=== PATIENT | female | born 1990 | race Caucasian/White ===

== ENCOUNTER → 2020-09-08 15:13 | Outpatient (BNVA) | payer MEDICAID, SELFPAY | PROVIDERS: Visit Provider Obstetrics & Gynecology | DX: Z34.01 Encounter for supervision of normal first pregnancy, first trimester (principal) | CPT/HCPCS: 80307; 84315; 85027; 86592; 86762; 86803; 86850; 86900; 87086; 87340; 87806 ==

== ENCOUNTER → 2020-09-22 09:56 | Outpatient (BNVA) | payer MEDICAID, SELFPAY | PROVIDERS: Visit Provider Obstetrics & Gynecology | DX: Z34.01 Encounter for supervision of normal first pregnancy, first trimester (principal) | CPT/HCPCS: 82950; 84315; 87491; 87591 ==

== ENCOUNTER → 2020-11-18 14:32 | Outpatient (BNVA) | payer MEDICAID, SELFPAY | PROVIDERS: Visit Provider Obstetrics & Gynecology | DX: Z36.87 Encounter for antenatal screening for uncertain dates (principal) | CPT/HCPCS: 76805 ==

== ENCOUNTER → 2020-12-16 13:15 | Outpatient (BNVA) | payer MEDICAID, SELFPAY | PROVIDERS: Visit Provider Obstetrics & Gynecology | DX: Z34.01 Encounter for supervision of normal first pregnancy, first trimester (principal) | CPT/HCPCS: 82950; 84315 ==

== ENCOUNTER → 2020-12-26 15:51 | Outpatient (BNVA) | payer MEDICAID, SELFPAY | PROVIDERS: Visit Provider Obstetrics & Gynecology | DX: Z34.01 Encounter for supervision of normal first pregnancy, first trimester (principal); Z20.2 Contact with and (suspected) exposure to infections with a predominantly sexual mode of transmission; Z76.89 Persons encountering health services in other specified circumstances | CPT/HCPCS: 84315; 87491; 87591; 87661 ==

== ENCOUNTER → 2021-01-13 13:12 | Outpatient (BNVA) | payer MEDICAID, SELFPAY | PROVIDERS: Visit Provider Obstetrics & Gynecology | DX: Z34.01 Encounter for supervision of normal first pregnancy, first trimester (principal) | CPT/HCPCS: 84315; 85025 ==

== ENCOUNTER → 2021-01-27 10:01 | Outpatient (BNVA) | payer MEDICAID, SELFPAY | PROVIDERS: Visit Provider Nurse Practitioner Women's Health | DX: Z34.90 Encounter for supervision of normal pregnancy, unspecified, unspecified trimester (principal) | CPT/HCPCS: 80307; 84315 ==

== ENCOUNTER → 2021-03-10 09:44 | Outpatient (BNVA) | payer MEDICAID, SELFPAY | PROVIDERS: Visit Provider Obstetrics & Gynecology | DX: Z34.01 Encounter for supervision of normal first pregnancy, first trimester (principal) | CPT/HCPCS: 81000; 87081 ==

== ENCOUNTER 2021-03-18 11:18 | Outpatient (CLI) | payer MEDICAID, SELFPAY ==
[2021-03-18] VITALS (8 sets, daily range): BP systolic 120–151; BP diastolic 66–86; PULSE 86–116; RESP 18; TEMP 36.4; BMI 44.6
[2021-03-18] MEDS: acetaminophen 500 mg Tablet 1000 MG PO (13:02)
== END 2021-03-18 13:33 | disposition home or self-care (01) ==
LOC: OPOB 11:22 → OBGYN 11:24
PROVIDERS: Visit Provider Obstetrics & Gynecology
DX: O99.891 Other specified diseases and conditions complicating pregnancy (principal); M54.9 Dorsalgia, unspecified; M25.559 Pain in unspecified hip
CPT/HCPCS: 59025; 99211

== ENCOUNTER → 2021-03-31 08:50 | Outpatient (BNVA) | payer MEDICAID, SELFPAY | PROVIDERS: Visit Provider Obstetrics & Gynecology | DX: Z34.01 Encounter for supervision of normal first pregnancy, first trimester (principal); Z20.822 Contact with and (suspected) exposure to COVID-19 | CPT/HCPCS: 81000; 87635 ==

== ENCOUNTER 2021-04-07 18:30 | Inpatient (IN) | payer MEDICAID, SELFPAY ==
[2021-04-07] VITALS (14 sets, daily range): BP systolic 128–174; BP diastolic 60–110; PULSE 55–85; RESP 18; TEMP 36.2; BMI 44.0
[2021-04-07 20:12] LABS: Add Urine Microscopic? NO; Charge for UA Resulting for Rev
[2021-04-07] MEDS: miSOPROStol 100 mcg tablet 25 MCG VAGINAL (20:14)
[2021-04-07 20:17] LABS: Basophils # 0.1 10^3/uL (0.0-0.1); Basophils % 0.3 %; Eosinophils # 0.2 10^3/uL (0.0-0.8); Hematocrit 38.1 % (37.0-47.0); Hemoglobin 11.9 g/dL (11.5-15.3); Lymphocytes # 3.7 10^3/uL (0.8-4.8); Lymphocytes % 22.1 %; Mean Corpuscular HGB Conc 31.2 g/dL (30.0-36.0); Mean Corpuscular Hemoglobin 23.9 pg (28.0-34.0); Mean Corpuscular Volume 76.5 fl (81-99); Monocytes % 6.2 %; Neutrophils # 11.72 10^3/uL (1.8-7.7); Neutrophils % 69.9 %; Nucleated Red Blood Cells % 0 %; Platelet Count 353 10^3/cmm (130-400); Red Blood Count 4.98 10^6/uL (4.1-5.3); Red Cell Distribution Width 15.9 % (12.1-15.1); White Blood Count 16.8 10^3/uL (4.0-10.0)
[2021-04-07 20:24] LABS: Bilirubin Urine Neg (Negative); Blood Urine Neg (Negative); Glucose Urine UA Norm (Normal); Ketones Urine Negative (Negative); Leukocyte Esterase Urine Negative (Negative); Nitrate Urine Negative (Negative); Protein Urine Neg (Negative); Specific Gravity, Urine 1.015 (1.005-1.030); Urine Appearance Clear (CLEAR); Urine Color Yellow (Yellow); Urobilinogen Urine Neg (Negative); pH Urine 5 (5-7)
[2021-04-07 20:34] LABS: Alanine Aminotransferase < 5 U/L (0-33); Albumin Level 3.1 g/dL (3.5-5.2); Alkaline Phosphatase 173 IU/L (35-105); Aspartate Amino Transferase 13 U/L (0-32); Blood Urea Nitrogen 13 mg/dL (6-20); Calcium 8.4 mg/dL (8.5-10.5); Carbon Dioxide 17 mmol/L (22-29); Chloride 106 mmol/L (98-107); Globulin 2.7 g/dL (1.3-4.6); Glomerular Filtration Rate 74.6 mL/min (90-130); Glucose 118 mg/dL (65-115); Osmolality Calculated 281 mOsm/kg (285-295); Sodium 135 mmol/L (136-145); Total Bilirubin 0.2 mg/dL (0.15-1.2); Total Protein 5.8 g/dL (6.6-8.7); Uric Acid 4.7 mg/dL (2.4-5.7)
[2021-04-07 20:43] LABS: Urine Creatinine 109 mg/dL (28-217); Urine Protein Random 11 mg/dL
[2021-04-07] MEDS: dextrose 5%-lactated ringers 1,000 ML 125 ML IV (21:04)
[2021-04-08] VITALS (83 sets, daily range): BP systolic 109–175; BP diastolic 58–105; PULSE 44–85; RESP 17; TEMP 36.3–37.4
[2021-04-08] MEDS: miSOPROStol 100 mcg tablet 25 MCG VAGINAL ×3 (00:18→13:50)
--- NOTE | 2021-04-08 08:45 | PM.OPHPUD ---
Labor & Delivery H&P Update Date of Procedure: April 07, 2021 Date H&P Performed: 04/07/21 H&P update information: I have reviewed H&P completed within last 30 days, I have examined patient prior to procedure and No changes to prior documentation Changes to previous documentation: The patient presents for induction at term. She has had some labile blood pressures, but otherwise no changes. Admission Diagnosis: at 40 weeks 1 day
--- NOTE | 2021-04-08 08:47 | PM.PN ---
Vitals/I&O/Wt Last Vital Signs Temp 97.3 F L 04/08/21 02:12 Pulse 62 04/08/21 08:19 Resp 18 04/07/21 19:41 BP 128/74 04/08/21 08:19 04/07/21 04/08/21 04/08/21 22:59 06:59 14:59 Intake Total 106.25 / 106.25 Balance 106.25 / 106.25 Weight last 48 hrs Weight 273 lb Physical Exam Narrative: EXAM NARRATIVE: The patient is doing well this morning. She has received two doses of cytotec. She had breakfast and now has had a third dose of cytotec. status is overall reassuring. blood pressures have been mostly normal, but she will have an occasional high in the mild range. Const: COMMON NORMALS: no acute distress, patient oriented x3, no limitations, alert and well nourished GENERAL APPEARANCE: cooperative, well kempt and well developed ORIENTATION/CONSCIOUSNESS: Yes awake, Yes oriented to person, Yes oriented to place and Yes oriented to time Neuro: COMMON NORMALS: patient oriented x3 SENSORIUM/ORIENTATION: Yes alert, Yes oriented to person, Yes oriented to place and Yes oriented to time Psych: COMMON NORMALS: mental status grossly normal, Normal thought process present, cooperative, normal affect and speech normal APPEARANCE: Yes grossly normal and Yes well kempt ATTITUDE: Yes calm and Yes engaged ACTIVITY/MOTOR BEHAVIOR: Yes appropriate eye contact SPEECH: Yes normal speech THOUGHT PROCESS: Normal thought process present Data : 04/07/21 20:05 04/07/21 20:05 Attestations Medical Necessity Statement*: The patient will be here for at least 2 midnights Coding Level of Care Code Acute Clerical Supervisor for Rigoberto Dixon
[2021-04-08] MEDS: fentaNYL 50 mcg/mL INJ 2mL IVP ×2 (10:39→14:47)
[2021-04-08] MEDS: lactated ringers 1,000 ML 999 ML IV (16:03)
--- NOTE | 2021-04-08 16:45 | P.ANESASSM_ITS ---
Pre-Anesthetic Assessment Pre-Anesthetic Assessment: Height/Weight: Height 1.68 m Weight 123.831 kg Temp Pulse Resp BP 97.5 F L 60 17 128/60 04/08/21 11:13 04/08/21 17:28 04/08/21 14:47 04/08/21 17:28 Preop Diagnosis: IUP Proposed Procedure: epdiraul Familial anesthetic complications: Hard to wake up after appendectomy as a 12 year old Social: Social History: Tobacco and No alcohol Airway: MP: 3 Dentition: Chipped GI: GI: GERD Metabolic: Metabolic: Morbid obesity Anesthetic Plan: ASA status: 3 Anesthesia: Regional (specify below) Risk of > 500 ml blood loss (7ml/kg in children): Yes, adequate IV access and fluids planned Meds/Allergies Current Medications: Current Medications Generic Name Dose Route Start Last Admin Trade Name Freq PRN Reason Stop Dose Admin Fentanyl 25 - 100 mcg 04/08/21 10:28 04/08/21 14:47 Fentanyl 50 Mcg/ Ml Inj 2ml IVP 25 mcg Q1H PRN Administration SEVERE PAIN Dextrose/Lactated Ringer's 1,000 mls @ 125 m ls/hr 04/07/21 19:45 04/08/21 14:50 Dextrose 5%-Lact ated Ringers IV 125 mls/hr .Q8H SCOTT Infusion Lactated Ringer's 1,000 mls @ 999 m ls/hr 04/08/21 16:00 04/08/21 16:03 Lactated Ringers IV 999 mls/hr .Q1H1M PRN Administration See label comment s PFSH Anesthesia PFSH: Medical History No pertinent past medical history neghx: htn,dm,thyroid,dvt/pe PCP: None Surgical History Hx of appendectomy at age 13 Family History Family/Other Breast cancer Paternal Cousin--dx age 28 Grandfather Diabetes Paternal Heart disease Paternal Father Heart disease Diabetes Grandmother Hypertension Maternal Denies family history of Colon cancer Ovarian cancer Hypercholesteremia Uterine cancer Thyroid disease Stroke Female Reproductive History: : 1 Data Anesthesia CBC & Chem 7: 04/07/21 20:05 04/07/21 20:05 Other Labs: Laboratory Results - last 48 hr 04/07/21 04/07/21 04/07/21 20:05 20:05 20:05 WBC 16.8 H RBC 4.98 Hgb 11.9 Hct 38.1 MCV 76.5 L MCH 23.9 L MCHC 31.2 RDW 15.9 H Plt Count 353 MPV 12.0 H Neut % (Auto) 69.9 Lymph % (Auto) 22.1 [place] % (Auto) 6.2 Eos % (Auto) 1.0 Baso % (Auto) 0.3 Neut # (Auto) 11.72 H Lymph # (Auto) 3.7 [place] # (Auto) 1.0 H Eos # (Auto) 0.2 Baso # (Auto) 0.1 Nucleated RBC % (auto) 0 Nucleated RBCs # 0.0 Sodium Potassium Chloride Carbon Dioxide Anion Gap BUN Creatinine GFR Calculation Glucose Calculated Osmolality Uric Acid Calcium Total Bilirubin AST ALT Alkaline Phosphatase Total Protein Albumin Globulin Urine Color Yellow Urine Appearance Clear Urine pH 5 Ur Specific [place] 1.015 Urine Protein Neg Urine Glucose (UA) Norm Urine Ketones Negative Urine Blood Neg Urine Nitrate Negative Urine Bilirubin Neg Urine Urobilinogen Neg Ur Leukocyte Esterase Negative U Random Total Protein 11 Urine Creatinine 109 Protein/Creatinin Ratio 0.10 04/07/21 20:05 WBC RBC Hgb Hct MCV MCH MCHC RDW Plt Count MPV Neut % (Auto) Lymph % (Auto) [place] % (Auto) Eos % (Auto) Baso % (Auto) Neut # (Auto) Lymph # (Auto) [place] # (Auto) Eos # (Auto) Baso # (Auto) Nucleated RBC % (auto) Nucleated RBCs # Sodium 135 L Potassium 4.0 Chloride 106 Carbon Dioxide 17 L Anion Gap 16.0 BUN 13 Creatinine 0.9 GFR Calculation 74.6 L Glucose 118 H Calculated Osmolality 281 L Uric Acid 4.7 Calcium 8.4 L Total Bilirubin 0.2 AST 13 ALT < 5 Alkaline Phosphatase 173 H Total Protein 5.8 L Albumin 3.1 L Globulin 2.7 Urine Color Urine Appearance Urine pH Ur Specific [place] Urine Protein Urine Glucose (UA) Urine Ketones Urine Blood Urine Nitrate Urine Bilirubin Urine Urobilinogen Ur Leukocyte Esterase U Random Total Protein Urine Creatinine Protein/Creatinin Ratio Cardiac Studies: No Data to Display
--- NOTE | 2021-04-08 17:05 | ANES.PROC ---
Anesthesia Procedures Procedure/Date: 04/08/21 Epidural: Time Out Performed: Yes Consents Signed: Procedure Consent Consent: requested by attending/covering physician Lumbar Level: L3-L4 Epidural position: sitting Epidural procedure: sterile prep of area, 1% lidocaine to numb the area, 18 g needle, negative for paresthesia passed, neg for paresthesia, test dose given, 1.5% xylocaine 1:200k epi, 0.2% Ropivacaine bolus ml (5), placed PCEA, no systemic response, sterile dressing applied, L.U.D. no apparent complications and 0.2% Ropiavacaine @ mls/hr (3)
[2021-04-08] MEDS: dextrose 5%-lactated ringers 1,000 ML 125 ML IV (17:31)
[2021-04-08] MEDS: oxytocin 30 UNIT/500 ML BAG IV (17:31)
[2021-04-09] VITALS (40 sets, daily range): BP systolic 101–188; BP diastolic 60–111; PULSE 58–116; RESP 17–18; TEMP 36.4–37.6
[2021-04-09] MEDS: lactated ringers 1,000 ML 999 ML IV (00:50)
[2021-04-09] MEDS: dextrose 5%-lactated ringers 1,000 ML 125 ML IV (02:02)
[2021-04-09] MEDS: lactated ringers 1,000 ML 125 ML IV (05:07)
[2021-04-09] MEDS: lidocaine 2% INJ 20 mL INJECTION (05:39)
--- NOTE | 2021-04-09 05:51 | P.PCNOB_ITS ---
Delivery Note: Date of delivery: April 09, 2021 Pre-delivery diagnoses: Term Post-delivery diagnoses: Term delivered Op report anesthesia: Epidural Estimated blood loss (mL): 300 Findings: At 0 530 baby boy, Apgars 9/9, weight 3270 g, first-degree laceration Pre-Delivery Course: The patient is a 30yo at 40+2 weeks EGA who has been receiving care from [facility]. Mrs. Peck was admitted to labor and delivery at 40 weeks +1-day for elective induction. Cervical ripening via misoprostol x3 followed by oxytocin. LMP:06/30/2020 EDC of 04/06/2021 HPI: Received appropriate care. Daily vitamins since the start of care. labs have all been normal, including negative for HIV. She was found to negative for Group B Strep from screening at 36 weeks. She has gained approximately 20 lbs throughout the . She denies a history of HTN during . Glucose tolerance screening for gestational diabetes was negative. Delivery: The patient was noted to be complete and pushing, so was placed in the dorsal lithotomy position, prepped and draped in the usual sterile fashion for a vaginal delivery. Pt. Noted to have epidural anesthesia. At 0530 the patient delivered a viable at 40+2 weeks male weighing 3270 g with scores of 9 and 9 at one and five minutes, respectively. The vertex was delivered spontaneously over an intact perineum. The patient was asked to push and the head delivered spontaneously in the DOMENIC position, over an intact perineum. A nuchal cord was checked and 1 noted, and delivered through around head as necessary. The anterior shoulder delivered easily and the posterior shoulder followed. The remainder of the infant was easily delivered and the oropharynx and nasopharynx was bulb suctioned. The was noted to have spontaneous cry and spontaneous movement of all four extremities. The cord was clamped x 2 and cut and noted to have 2 arteries and one vein. The was passed to the mother's abdomen where nursing personnel were in attendance. The placenta delivered intact spontaneously and the uterus was explored. 20 units of Pitocin was placed in the IV bag to firm the uterus. Examination of the cervix and vaginal vault did not reveal any lacerations. A vaginal pack was then placed. Examination of the perineum showed a bleeding first-degree laceration. The l aceration was repaired with 3-0 Vicryl in the normal fashion in a running non locking fashion to reapproximate the laceration in layers. The vaginal pack was then removed. The patient tolerated this procedure well, and recovered in L&D with her in their LDR room. All sponge and needle counts were correct. History History History 1 Term Miscarriages/Ectopic Living Children A&P Assessment and plan (1) Term delivered: Status: Acute Coding Level of Care Code Acute Chocolate Coater for Chg Fwd Diagnoses Term delivered O80
[2021-04-09] MEDS: benzocaine-menthol 78 gm Canister 1 SPRAY TOPICAL (08:38)
[2021-04-09] MEDS: docusate sodium 100 mg Capsule PO ×2 (08:39→18:20)
[2021-04-09] MEDS: prenatal vitamin Capsule 1 CAP PO (08:39)
[2021-04-09] MEDS: ibuprofen 800 mg tablet PO ×3 (08:39→21:08)
--- NOTE | 2021-04-09 16:36 | PC.NURSE ---
pt ambulated to OB12 without difficulty. oriented to room and call light.
[2021-04-09 18:39] LABS: Hematocrit 31.8 % (37.0-47.0); Mean Corpuscular HGB Conc 31.4 g/dL (30.0-36.0); Mean Corpuscular Hemoglobin 24.5 pg (28.0-34.0); Mean Corpuscular Volume 77.9 fl (81-99); Mean Platelet Volume 11.6 fL (7.4-10.4); Platelet Count 273 10^3/cmm (130-400); Red Blood Count 4.08 10^6/uL (4.1-5.3); Red Cell Distribution Width 15.9 % (12.1-15.1); White Blood Count 25.6 10^3/uL (4.0-10.0)
[2021-04-10] VITALS: BP 143/82; PULSE 81; RESP 18; TEMP 36.8
[2021-04-10 04:00] VITALS: BP 144/87; PULSE 91; RESP 18; TEMP 36.7
--- NOTE | 2021-04-10 08:32 | P.DS_ITS ---
Discharge Providers TOWER EQUIPMENT REPAIRER Date of Admission: 04/07/21 18:30 Date of Discharge: 04/10/21 Attending Provider at Admission: Grace Louis MD Attending Provider at Discharge: Grace Louis MD Diagnoses at Discharge Discharge Diagnosis (1) Term delivered: Status: Acute Reason for Visit Reason for Visit: IOL Hospital Course Hospital Course Mrs. Peck a 30yo at 40+2 weeks EGA who has been receiving care from [facility]. Mrs. Peck was admitted to labor and delivery at 40 weeks +1-day for an electi ve induction. Cervical ripening via misoprostol x3 followed by oxytocin. LMP:06/30/2020 EDC of 04/06/2021 HPI: Received appropriate care. Daily vitamins since the start of care. labs have all been normal, including negative for HIV. She was found to negative for Group B Strep from screening at 36 weeks. She has gained approximately 20 lbs throughout the . She denies a history of HTN during . Glucose tolerance screening for gestational diabetes was negative. Mrs. Peck progressed to have a spontaneous vaginal delivery without any complications. She delivered an boy with a birthweight of 3270 g with an Apgars of 9/9. observation was uneventful. She is afebrile and hemodynamically stable day 1. Tolerating diet well. Ambulating without difficulty. No pain. Information Peripartum Data: Infant Delivery Method: Vaginal Physical Exam Narrative: EXAM NARRATIVE: GA; alert and oriented x 3 HEENT: normal Breasts: engorged Nipples - skin intact Lungs; clear to auscultation Heart: regular rhythm, no murmurs. Abd: Appropriately tender. BS+. Uterine fundus below umbilicus. No Fundal Tenderness. Perineum: normal lochia. Extremities: no edema, no cyanosis, no tenderness. Urinary Catheter Management^: Mauro Latex: Cath Placed During This Visit: yes, but has since been removed by the nurse Reason for Continuing Indwelling Catheter: Decision to DC Catheter Urinary Catheter Date of Insertion: 04/08/21 Urinary Catheter Time of Insertion: 17:35 Date Urinary Catheter Removed: 04/09/21 Time Urinary Catheter Discontinued: 05:01 History History History 1 Term Miscarriages/Ectopic Living Children Discharge Data 2 Data Completed and Pending: Labs from last 24 hours 04/09/21 17:56 WBC 25.6 H RBC 4.08 L Hgb 10.0 L Hct 31.8 L MCV 77.9 L MCH 24.5 L MCHC 31.4 RDW 15.9 H Plt Count 273 MPV 11.6 H Vitals: Last Vital Signs Temp 98.0 F 04/10/21 04:00 Pulse 91 04/10/21 04:00 Resp 18 04/10/21 04:00 BP 144/87 04/10/21 04:00 Discharge Plan Discharge Patient Disposition: Home Condition: Stable Prescriptions: New ibuprofen 800 mg tablet 800 mg PO TID PRN (Reason: pain) Qty: 60 RF: 0 Iron (ferrous sulfate) 325 mg (65 mg iron) tablet 325 mg PO BID Qty: 60 RF: 0 acetaminophen 325 mg capsule 325 mg PO Q4H PRN (Reason: fever or pain) Qty: 60 RF: 0 Continued prenat.vits,carson,[id number] Tablet 1 tab PO DAILY RF: 0 famotidine [[employer] Sales Representative (famotidine)] 20 mg tablet 20 mg PO DAILY PRNRF: 0 Discharge Orders: Discharge Order (Routine); Ordered 04/10/21 Ordered By: Markel Hdez Referrals: Markel Hdez MD [Physician] - 05/19/21 11:00 am (Your 6 week post- appointment is scheduled for 05/19/21 @11:00. ) Discharge Diet: As Directed and Regular Discharge Activity: Increase activity as tolerated Patient Instructions: Depression (DC), Expression, Collection and Storage of Breast Milk (DC), Bleeding (DC), Preeclampsia and Eclampsia After Delivery (GEN), OB Discharge Report, OB Food/Drug Interaction Guide, Opioid Safety, OB Home Care, OB Vaginal Deliveries - [facility] Activity Restrictions/Additional Instructions: 1. Please call [facility] on next working day to make your appointment in 6 weeks. 2. Please stay home until you come back to the clinic on first post-operative check up. 3. Please follow instructions on your medications CAREFULLY. 4. If you have abdominal incision, do not cover it unless dressing is necessary because of drainage. OK to shower, but avoid bath. Leave steri-strips until they fall off. If they are still on one week after surgery, you may remove them. 5. If you had vaginal surgery or vaginal repair, Dr. Hdez may instruct you to take SITZ bath. 6. Yellow, blood tinged odorous vaginal discharge is usually normal after hysterectomy or vaginal surgeries. 7. No sexual intercourse, tampons, or douches until you are completely released from the post-operative care. 8. Avoid constipation by eating right and maybe using some Metamucil or Milk of Magnesia. 9. All prescription refills are given during the working hours. Please do no wait till it runs out. Call the clinic at [phone] before your medication runs out. The clinic will get in touch with your doctor to prescribe medica tions if necessary. 10. Please remain within 40 mile radius from our hospital because emergencies do happen now and then during the post-operative period. 11. If you have stairs at home, take one step at a time slowly and minimize the number of trips. It helps to stay in one floor for the next few days. No lifting except what you can lift by one hand until you are released from the post-operative care. 12. Driving is discouraged until you are well healed. It may be 3-4 weeks before you feel strong enough to drive. You should be able to turn and look through the rear window without pain and you should be able to push the brake pedal very hard without pain before you drive. No fast rules, but SAFETY should be your primary concern. DO NOT drive if you are on sedating medications such as narcotics. 13. Call the clinic (during working hours) to make urgent appointment or go to the Emergency room, if any of the following occurs: i. Vaginal bleeding becomes heavy, more than a period. ii. Incision becomes red and sore, or drains pus. iii. Your temperature is over 100.4 or you have chill. iv. IV site becomes red and swollen (a little ``knot?? is usually OK) v. Persistent nausea and vomiting vi. Persistent constipation or diarrhea vii. Rash or allergic reaction to medications. Discharge Attestations TOWER EQUIPMENT REPAIRER Time Spent in Discharge Care*: greater than 30 min Coding Level of Care Code Acute Twx Operator for Chg Fwd Diagnoses Term delivered O80
[2021-04-10] MEDS: docusate sodium 100 mg Capsule PO (10:55)
[2021-04-10] MEDS: ibuprofen 800 mg tablet PO ×2 (10:55→15:16)
[2021-04-10] MEDS: prenatal vitamin Capsule 1 CAP PO (10:55)
--- NOTE | 2021-04-10 11:59 | ANE.PACU2 ---
Inpatient post-anesthesia follow up: Airway intact: Yes Vital signs: Temperature 98.0 F Pulse Rate 91 Respiratory Rate 18 Blood Pressure 144/87 Pulse Oximetry Oxygen Delivery Me thod Room Air Oxygen Flow Rate Fraction of Inspir ed Oxygen Hydration adequate: Yes Nausea and vomiting: No Pain level: 2 Mental status: Baseline
[2021-04-10] MEDS: HYDROcodone-acetaminophen 5-325 mg Tablet PO (16:57)
[2021-04-10 19:50] VITALS: BP 145/86; PULSE 68; RESP 17; TEMP 36.9; O2SAT 98
[2021-04-10 20:44] VITALS: BP 145/86; PULSE 68; RESP 17; TEMP 36.9; O2SAT 98
== END 2021-04-10 19:50 | disposition home or self-care (01) | DRG 807 ==
LOC: OBGYN 21:05
PROVIDERS: Obstetrics & Gynecology; Admitting Provider Obstetrics & Gynecology; Visit Provider Obstetrics & Gynecology
DX: O48.0 Post-term pregnancy (principal); Z37.0 Single live birth; O69.81X0 Labor and delivery complicated by cord around neck, without compression, not applicable or unspecified; O70.0 First degree perineal laceration during delivery; O99.334 Smoking (tobacco) complicating childbirth; F17.210 Nicotine dependence, cigarettes, uncomplicated; O99.214 Obesity complicating childbirth; E66.01 Morbid (severe) obesity due to excess calories; Z3A.40 40 weeks gestation of pregnancy
CPT/HCPCS: 36415; 51702; 59025; 59409; 80053; 81003; 82570; 84156; 84315; 84550; 85025; 85027; 96374; 98960; J2795; J3010

== ENCOUNTER → 2021-05-25 09:24 | Outpatient (BNVA) | payer MEDICAID, SELFPAY | PROVIDERS: Visit Provider Obstetrics & Gynecology | DX: Z30.017 Encounter for initial prescription of implantable subdermal contraceptive (principal) | CPT/HCPCS: 81025 ==

== ENCOUNTER 2022-07-18 06:09 | Emergency (ER) | payer MEDICAID, SELFPAY ==
--- NOTE | 2022-07-18 06:14 | XRR_ITS ---
PROCEDURE INFORMATION: Exam: XR Chest Exam date and time: 07/18/2022 6:22 AM Age: 32 years old Clinical indication: Chest wall pain; Additional info: Cp TECHNIQUE: Imaging protocol: Radiologic exam of the chest. Views: 1 view. COMPARISON: No relevant prior studies available. FINDINGS: Lungs: The lung parenchyma is clear. Pleural spaces: No pneumothorax. No pleural effusion. Heart/Mediastinum: The cardiac silhouette is at the upper limits of normal. Bones/joints: Unremarkable. XR/XR chest 1V portable [id number] IMPRESSION: The cardiac silhouette is at the upper limits of normal.
--- NOTE | 2022-07-18 06:21 | W.ED.NAVMDI ---
HPI - Nausea/Vomiting/Diarrhea General: Chief complaint: Abdominal Pain Stated complaint: N/V Chest and abd pain Time Seen by Provider: 07/18/22 06:16 Source: patient Mode of arrival: ambulatory Limitations: no limitations History of Present Illness: 32-year-old female states she woke up this morning at 3 AM with vomiting states had multiple episodes of vomiting has not been able to tolerate any p.o. she has been having some chest pain and abdominal pain as well her abdominal pain is diffuse in nature and cramping. She denies any fevers. She denies any worsening improving factors. Associated nausea: Yes Associated symtoms: Reports chest pain and nausea; Denies dysuria or headache(s) Review of Systems Const: Denies: fever(s), chills, body aches or change in appetite Eyes: Denies: blurry vision or eye discomfort ENMT: Denies: throat pain or dental pain Card: Reports: chest pain Resp: Denies: dyspnea GI: Reports: abdominal pain, nausea and vomiting : Denies: dysuria Musc: Denies: neck pain or back pain Skin/Breast: Denies: rash Neuro: Denies: headache(s) Psych: Denies: depression Henry/Lymph: Denies: easy bruising All/Imm: Denies: urticaria PFSH ED PFSH: Medical History No pertinent past medical history neghx: htn,dm,thyroid,dvt/pe PCP: None Surgical History Hx of appendectomy at age 13 Family History Family/Other Breast cancer Paternal Cousin--dx age 28 Grandfather Diabetes Paternal Heart disease Paternal Father Heart disease Diabetes Grandmother Hypertension Maternal Denies family history of Colon cancer Ovarian cancer Hypercholesteremia Uterine cancer Thyroid disease Stroke Physical Exam Const: COMMON NORMALS: no acute distress, patient oriented x3 and healthy appearing HENMT: COMMON NORMALS: normocephalic and atraumatic HEAD & SCALP: normocephalic and atraumatic Eye: COMMON NORMALS: Equal, round and reactive pupils present and EOMs intact bilaterally PUPIL: Yes Equal, round and reactive pupils present Neck/C-Spine: COMMON NORMALS: full ROM and supple Chest: COMMONS NORMALS: normal inspection of the chest and normal palpation of entire chest wall Resp: COMMON NORMALS: normal respiratory effort, No retractions, No use of accessory muscles and clear to auscultation bilaterally AUSCULTATION: clear to auscultation bilaterally Cardio: COMMON NORMALS: regular rate, regular rhythm and No murmurs present (Cardio) RATE: regular rate RHYTHM: regular rhythm GI: COMMON NORMALS: Normal to inspection, nondistended, normoactive bowel sounds present, Soft to palpation, non-tender and no masses PALPATION: Yes Soft to palpation Extremity: COMMON NORMALS: normal to inspection and full ROM Neuro: COMMON NORMALS: patient oriented x3, moves all extremities and no focal motor deficits Psych: COMMON NORMALS: mental status grossly normal, Normal thought process present and cooperative THOUGHT PROCESS: Normal thought process present Skin: COMMON NORMALS: no rashes or lesions noted and no wounds GENERAL SKIN EXAM: no rashes or lesions noted Course Vital Signs: Vital signs: Vital Signs Temperature 96.7 F L 07/18/22 06:22 Pulse Rate 90 07/18/22 06:22 Respiratory Rate 18 07/18/22 06:27 Blood Pressure 190/107 07/18/22 06:22 Pulse Oximetry 100 07/18/22 06:22 Oxygen Delivery Me thod 07/18/22 06:22 MDM - Nausea/Vomiting/Diarrhea Medical Decision Making Patient presents here with vomiting likely viral in origin she is well-appearing here abdominal exam is benign at discharge she does have gallstones no signs of cholecystitis we will get her follow-up with surgery she is return if worsening she understands agrees to plan. Lab Data 07/18/22 06:33 07/18/22 06:33 Radiology Impressions Chest X-Ray 07/18/22 06:14 IMPRESSION: The cardiac silhouette is at the upper limits of normal. Abdomen/Pelvis CT 07/18/22 06:40 IMPRESSION: 1. No acute abdominopelvic abnormality identified. 2. Cholelithiasis without evidence of acute cholecystitis. Laboratory Results WBC 16.7 10^3/uL (4.0-10.0) H 07/18/22 06:33 RBC 5.62 10^6/uL (4.1-5.3) H 07/18/22 06:33 Hgb 13.3 g/dL (11.5-15.3) 07/18/22 06:33 Hct 42.8 % (37.0-47.0) 07/18/22 06:33 MCV 76.2 fl (81-99) L 07/18/22 06:33 MCH 23.7 pg (28.0-34.0) L 07/18/22 06:33 MCHC 31.1 g/dL (30.0-36.0) 07/18/22 06:33 RDW 15.4 % (12.1-15.1) H 07/18/22 06:33 Plt Count 388 10^3/cmm (130-400) 07/18/22 06:33 MPV 9.7 fL (7.4-10.4) 07/18/22 06:33 Neut % (Auto) 76.5 % 07/18/22 06:33 Lymph % (Auto) 16.6 % 07/18/22 06:33 [place] % (Auto) 5.1 % 07/18/22 06:33 Eos % (Auto) 1.1 % 07/18/22 06:33 Baso % (Auto) 0.3 % 07/18/22 06:33 Neut # (Auto) 12.78 10^3/uL (1.8-7.7) H 07/18/22 06:33 Lymph # (Auto) 2.8 10^3/uL (0.8-4.8) 07/18/22 06:33 [place] # (Auto) 0.9 10^3/uL (0.2-0.9) 07/18/22 06:33 Eos # (Auto) 0.2 10^3/uL (0.0-0.8) 07/18/22 06:33 Baso # (Auto) 0.1 10^3/uL (0.0-0.1) 07/18/22 06:33 Nucleated RBC % (auto) 0 % 07/18/22 06:33 Nucleated RBCs # 0.0 /100WBC 07/18/22 06:33 Sodium 136 mmol/L (136-145) 07/18/22 06:33 Potassium 3.9 mmol/L (3.5-5.1) 07/18/22 06:33 Chloride 105 mmol/L (98-107) 07/18/22 06:33 Carbon Dioxide 22 mmol/L (22-29) 07/18/22 06:33 Anion Gap 12.9 (5-19) 07/18/22 06:33 BUN 11 mg/dL (6-20) 07/18/22 06:33 Creatinine 0.6 mg/dL (0.5-0.9) 07/18/22 06:33 GFR Calculation 117.4 mL/min (90-130) 07/18/22 06:33 Glucose 107 mg/dL (65-115) 07/18/22 06:33 Calculated Osmolality 282 mOsm/kg (285-295) L 07/18/22 06:33 Calcium 8.9 mg/dL (8.5-10.5) 07/18/22 06:33 Total Bilirubin 0.3 mg/dL (0.15-1.2) 07/18/22 06:33 AST 16 U/L (0-32) 07/18/22 06:33 ALT 22 U/L (0-33) 07/18/22 06:33 Alkaline Phosphatase 78 U/L (35-105) 07/18/22 06:33 Troponin T Baseline 8 ng/L (0-10) 07/18/22 06:33 Total Protein 7.0 g/dL (6.6-8.7) 07/18/22 06:33 Albumin 3.9 g/dL (3.5-5.2) 07/18/22 06:33 Globulin 3.1 g/dL (1.3-4.6) 07/18/22 06:33 Lipase 54 U/L (13-60) 07/18/22 06:33 HCG, Qual Negative (Negative) 07/18/22 06:33 Urine Color Red (Yellow) 07/18/22 06:40 Urine Appearance Bloody (CLEAR) A 07/18/22 06:40 Urine pH 6.5 (5-7) 07/18/22 06:40 Ur Specific Cecil 1.020 (1.005-1.030) 07/18/22 06:40 Urine Protein 1+ (Negative) H 07/18/22 06:40 Urine Glucose (UA) Norm (Normal) 07/18/22 06:40 Urine Ketones 1+ (Negative) H 07/18/22 06:40 Urine Blood 3+ (Negative) H 07/18/22 06:40 Urine Nitrate Negative (Negative) 07/18/22 06:40 Urine Bilirubin Neg (Negative) 07/18/22 06:40 Urine Urobilinogen Norm mg/dL (Negative) 07/18/22 06:40 Ur Leukocyte Esterase 1+ (Negative) H 07/18/22 06:40 Urine RBC Too numerous to cnt /hpf (0-2) H 07/18/22 06:40 Urine WBC 15-25 /hpf (0-5) H 07/18/22 06:40 Ur Squamous Epith Cells 5-10 /hpf (0-5) H 07/18/22 06:40 Amorphous Sediment Not Reportable 07/18/22 06:40 Urine Bacteria 1+ /hpf (NONE) H 07/18/22 06:40 Discharge Plan Discharge Patient Disposition: Home Clinical Impression: Vomiting, Cholelithiasis Condition: Stable Prescriptions: New hydrocodone-acetaminophen 5-325 mg tablet 1 tab PO Q6H PRN (Reason: pain) Qty: 14 0RF ondansetron 4 mg tablet,disintegrating 4 mg PO Q6H PRN (Reason: nausea and vomiting) Qty: 14 0RF No Action prenat.vits,carson,byq-epeh-afuij Tablet 1 tab PO DAILY famotidine [Acid Records Officer (famotidine)] 20 mg tablet 20 mg PO DAILY PRN Nexplanon 68 mg implant subdermal ibuprofen 800 mg tablet 800 mg PO TID PRN (Reason: pain) Qty: 60 0RF Discharge Orders: Discharge ED (Routine); Ordered 07/18/22 Ordered By: Yeimy Valerio Referrals: Edis Girard DO [Physician] - 1-3 days Discharge Diet: Advance as tolerated Discharge Activity: Resume usual activity Patient Instructions: Gallstones (ED), Acute Nausea and Vomiting (ED), Opioid Safety Coding Level of Care Code ED Manager Fire for Chg Zack
[2022-07-18 06:22] VITALS: BP 190/107; PULSE 90; RESP 18; TEMP 35.9; O2SAT 100
[2022-07-18 06:27] VITALS: RESP 18
[2022-07-18] MEDS: sodium chloride 0.9% 1,000 ML 999 ML IV (06:27)
[2022-07-18] MEDS: ondansetron 2 mg/ML SDV 2 mL 4 MG IVP (06:27)
[2022-07-18] MEDS: morphine 4 mg/mL SDV 1 mL IVP (06:27)
--- NOTE | 2022-07-18 06:34 | ECG_ITS ---
[facility] Test Date: 2022-07-18 Pat Name: Doc Peck Department: Room: Gender: Female Corporate Travel Consultant: : 1990 Requested By: Yeimy Valerio Order Number: [id number] Jose MD: DISHA BUSTOS Measurements Intervals [place] Rate: 57 P: 15 WA: 158 QRS: 34 QRSD: 93 T: 20 QT: 414 QTc: 406 Interpretive Statements SINUS BRADYCARDIA WITH SINUS ARRHYTHMIA No previous ECG available for comparison Electronically Signed On 07-19-2022 3:07:36 CDT by DISHA BUSTOS [email or web address]
[2022-07-18 06:39] LABS: Basophils # 0.1 10^3/uL (0.0-0.1); Basophils % 0.3 %; Eosinophils # 0.2 10^3/uL (0.0-0.8); Eosinophils % 1.1 %; Hematocrit 42.8 % (37.0-47.0); Hemoglobin 13.3 g/dL (11.5-15.3); Lymphocytes # 2.8 10^3/uL (0.8-4.8); Lymphocytes % 16.6 %; Mean Corpuscular HGB Conc 31.1 g/dL (30.0-36.0); Mean Corpuscular Hemoglobin 23.7 pg (28.0-34.0); Mean Corpuscular Volume 76.2 fl (81-99); Mean Platelet Volume 9.7 fL (7.4-10.4); Monocytes # 0.9 10^3/uL (0.2-0.9); Monocytes % 5.1 %; Neutrophils # 12.78 10^3/uL (1.8-7.7); Neutrophils % 76.5 %; Nucleated Red Blood Cells % 0 %; Platelet Count 388 10^3/cmm (130-400); Red Blood Count 5.62 10^6/uL (4.1-5.3); Red Cell Distribution Width 15.4 % (12.1-15.1); White Blood Count 16.7 10^3/uL (4.0-10.0)
--- NOTE | 2022-07-18 06:40 | CTR_ITS ---
PROCEDURE INFORMATION: Exam: CT Abdomen And Pelvis With Contrast Exam date and time: 07/18/2022 7:16 AM Age: 32 years old Clinical indication: Abdominal pain; Generalized; Prior surgery; Surgery date: 6+ months; Surgery type: Appy; Additional info: Abd pain TECHNIQUE: Imaging protocol: Computed tomography of the abdomen and pelvis with contrast. Radiation optimization: All CT scans at this facility use at least one of these dose optimization techniques: automated exposure control; mA and/or kV adjustment per patient size (includes targeted exams where dose is matched to clinical indication); or iterative reconstruction. Contrast material: OMNIPAQUE 350; Contrast volume: 100 ml; Contrast route: INTRAVENOUS (IV); REPORTING DATA: Count of CT and Cardiac NM exams in prior 12 months: This patient has received 0 known CTs and 0 known cardiac nuclear medicine studies in the 12 months prior to the current study. COMPARISON: US OB F/U w fetalBPP wNST [facility] 04/07/2021 2:19 PM RADIATION DOSE METRICS: Total DLP (mGy-cm): 1235.13 FINDINGS: Lungs: Partially visualized lung bases are clear. Liver: Area of hypoattenuation along the anterior margin of the liver adjacent to the falciform ligament consistent with focal fatty infiltration. The liver is normal in size and contour. Gallbladder and bile ducts: Multiple calcified gallstones noted. No gallbladder wall thickening or pericholecystic fat stranding or fluid. Pancreas: The pancreas appears normal. Spleen: The spleen appears normal. Adrenal glands: The adrenals appear normal. Kidneys and ureters: The kidneys enhance symmetrically and empty into non-dilated ureters. Stomach and bowel: The stomach is unremarkable. The small bowel loops are not abnormally dilated. The large bowel loops are not abnormally dilated. Appendix: No signs of appendicitis. Intraperitoneal space: No ascites or significant fluid collection. Vasculature: The aorta is nonaneurysmal. The IVC appears normal. Lymph nodes: There are no enlarged lymph nodes. Urinary bladder: The urinary bladder is not well distended, therefore not well evaluated. Reproductive: Fluid density cyst measuring up to 3.8 cm in the left ovary. No follow-up necessary. The right ovary appears unremarkable. The uterus appears normal. Bones/joints: Unremarkable. Soft tissues: 6 mm fat containing umbilical hernia. CT/CT abdomen pelvis w con* [id number] IMPRESSION: 1. No acute abdominopelvic abnormality identified. 2. Cholelithiasis without evidence of acute cholecystitis.
[2022-07-18 07:01] LABS: Alanine Aminotransferase 22 U/L (0-33); Albumin Level 3.9 g/dL (3.5-5.2); Alkaline Phosphatase 78 U/L (35-105); Anion Gap 12.9 (5-19); Aspartate Amino Transferase 16 U/L (0-32); Blood Urea Nitrogen 11 mg/dL (6-20); Calcium 8.9 mg/dL (8.5-10.5); Carbon Dioxide 22 mmol/L (22-29); Chloride 105 mmol/L (98-107); Globulin 3.1 g/dL (1.3-4.6); Glomerular Filtration Rate 117.4 mL/min (90-130); Glucose 107 mg/dL (65-115); Lipase 54 U/L (13-60); Osmolality Calculated 282 mOsm/kg (285-295); Potassium 3.9 mmol/L (3.5-5.1); Sodium 136 mmol/L (136-145); Total Bilirubin 0.3 mg/dL (0.15-1.2)
[2022-07-18 07:02] LABS: Troponin(5th) Baseline 8 ng/L (0-10)
[2022-07-18 07:06] LABS: HCG, Serum Qual Negative (Negative)
[2022-07-18 07:11] LABS: Add Urine Microscopic? YES; Bilirubin Urine Neg (Negative); Blood Urine 3+ (Negative); Glucose Urine UA Norm (Normal); Ketones Urine 1+ (Negative); Leukocyte Esterase Urine 1+ (Negative); Nitrate Urine Negative (Negative); Protein Urine 1+ (Negative); Urine Appearance Bloody (CLEAR); Urine Color Red (Yellow); Urobilinogen Urine Norm (Negative); pH Urine 6.5 (5-7)
[2022-07-18 07:12] LABS: RBC Urine TOO NUMEROUS TO CNT /hpf (0-2)
[2022-07-18 07:13] LABS: WBC Urine 15-25 /hpf (0-5)
[2022-07-18 07:15] LABS: Bacteria Urine 1+ /hpf
[2022-07-18 07:16] LABS: Add Urine Culture? Yes
[2022-07-18] MEDS: iohexol 350 mg/mL 500 mL Btl (per mL) IV (07:20)
[2022-07-18] MEDS: hyDRALAzine 20 mg/mL INJ 1 mL 10 MG IVP (07:39)
[2022-07-18 08:21] VITALS: BP 141/85; PULSE 78; O2SAT 99
[2022-07-18 08:56] LABS: Troponin 5 2HR 8.49 ng/L (0-10)
[2022-07-18 09:47] LABS: Troponin 5 2HR Delta 0.49 ABS# (0-10)
--- NOTE | 2022-07-19 10:18 | DCPLANNER ---
Addendum entered by Yumiko Palmer 07/21/22 09:57: generation manager called [facility] surgery to confirm that facility had received patients information. generation manager was told that the facility did receive patients information, it will be reviewed, clinic will call patient with appointment information. Addendum entered by Yumiko Palmer 07/20/22 12:25: generation manager received the following message from general surgery regarding follow up appointment: Patient has [facility], please refer elsewhere generation manager called patient to let patient know that Dr. Girard is not in network with her insurance and to ask patient if she wanted to be referred to [facility] in [place]. Patient stated that she would like to be referred to [facility]. generation manager faxed patients information to [facility]. Patients information will be reviewed, and the facility will call patient with appointment information. Addendum entered by Yumiko Palmer 07/19/22 10:19: this was a referral to general surgery not ortho Original Note: generation manager had message to schedule a follow up appointment for patient with ortho. generation manager sent patients information to the front office staff at ortho. Patients information will be printed and reviewed. Clinic will call patient with appointment information.
--- NOTE | 2022-07-21 15:29 | DCPLANNER ---
TCM called patient due to no primary care physician - patient stated that she does not want one at this time.
== END 2022-07-18 08:22 | disposition home or self-care (01) ==
PROVIDERS: Emergency Provider Emergency Medicine
DX: K80.20 Calculus of gallbladder without cholecystitis without obstruction (principal)
CPT/HCPCS: 71045; 74177; 80053; 81001; 83690; 84484; 84703; 85025; 87086; 93005; 96374; 96375; 99285; J0360; J2270; J2405; J7030; Q9967

== ENCOUNTER → 2022-11-05 13:40 | Outpatient (BNVA) | payer MEDICAID, SELFPAY | PROVIDERS: Visit Provider Obstetrics & Gynecology | DX: Z01.419 Encounter for gynecological examination (general) (routine) without abnormal findings (principal); Z11.3 Encounter for screening for infections with a predominantly sexual mode of transmission | CPT/HCPCS: 87491; 87591; 87624 ==

== ENCOUNTER 2023-05-19 08:37 | Outpatient (CLI) | payer MEDICAID, SELFPAY ==
--- NOTE | 2023-05-19 08:45 | MM_ITS ---
WS: [id number] BILATERAL 3D TOMOSYNTHESIS DIGITAL DIAGNOSTIC MAMMOGRAPHY WITH CAD CLINICAL INFORMATION: LT NIPPLE DISCHARGE HISTORY: LEFT nipple yellowish. Discharge. Discharge resolved with antibiotics. LEFT breast lump alth ough now resolved COMPARISON: Baseline TECHNIQUE: Bilateral CC, MLO, and ML views. FINDINGS: Scattered fibroglandular densities bilaterally. No suspicious abnormalities in the area of the LEFT a reola. Ultrasound of this area is pending. RIGHT breast is unremarkable. ULTRASOUND BREAST LEFT TECHNIQUE: Ultrasound left breast focused area of concern. CLINICAL INFORMATION: LT NIPPLE DISCHARGE FINDINGS: Ultrasound LEFT breast at the areola. No evidence of drainable abscess or fluid collection. No cystic or solid lesions. No suspicious findings to target for biopsy. IMPRESSION: MM/[place] [id number] BI-RADS: 2-Benign FOLLOW UP: Age 42 Recommend annual screening mammography age 42
== END 2023-05-19 08:38 | disposition home or self-care (01) ==
LOC: RAD 08:37
PROVIDERS: PCP Family Medicine; Visit Provider Family Medicine
DX: N64.52 Nipple discharge (principal); R92.323 Mammographic fibroglandular density, bilateral breasts
CPT/HCPCS: 76642; 77062; G0279

== ENCOUNTER → 2024-05-18 13:31 | Outpatient (BNVA) | payer MEDICAID, SELFPAY | PROVIDERS: PCP Family Medicine; Visit Provider Nurse Practitioner Women's Health | DX: N91.2 Amenorrhea, unspecified (principal); N92.6 Irregular menstruation, unspecified | CPT/HCPCS: 81025 ==

== ENCOUNTER → 2024-05-24 13:16 | Outpatient (BNVA) | payer MEDICAID, SELFPAY | PROVIDERS: PCP Family Medicine; Visit Provider Nurse Practitioner Women's Health | DX: Z34.90 Encounter for supervision of normal pregnancy, unspecified, unspecified trimester (principal) | CPT/HCPCS: 76801 ==

== ENCOUNTER → 2024-06-08 10:22 | Outpatient (BNVA) | payer MEDICAID, SELFPAY | PROVIDERS: PCP Family Medicine; Visit Provider Nurse Practitioner Women's Health | DX: Z34.92 Encounter for supervision of normal pregnancy, unspecified, second trimester (principal) | CPT/HCPCS: 80307; 84315; 85025; 86592; 86762; 86803; 86850; 86900; 87086; 87340; 87806 ==

== ENCOUNTER → 2024-06-22 12:56 | Outpatient (BNVA) | payer MEDICAID, SELFPAY | PROVIDERS: PCP Family Medicine; Visit Provider Obstetrics & Gynecology | DX: Z34.90 Encounter for supervision of normal pregnancy, unspecified, unspecified trimester (principal) | CPT/HCPCS: 82950; 84315 ==

== ENCOUNTER → 2024-07-20 10:09 | Outpatient (BNVA) | payer MEDICAID, SELFPAY | PROVIDERS: PCP Family Medicine; Visit Provider Nurse Practitioner Women's Health | DX: Z34.80 Encounter for supervision of other normal pregnancy, unspecified trimester (principal) | CPT/HCPCS: 84315; 87491; 87591; 87661 ==

== ENCOUNTER → 2024-07-23 15:33 | Outpatient (BNVA) | payer MEDICAID, SELFPAY | PROVIDERS: PCP Family Medicine; Visit Provider Nurse Practitioner Women's Health | DX: Z34.80 Encounter for supervision of other normal pregnancy, unspecified trimester (principal) | CPT/HCPCS: 82105 ==

== ENCOUNTER → 2024-08-14 14:23 | Outpatient (BNVA) | payer MEDICAID, SELFPAY | PROVIDERS: PCP Family Medicine; Visit Provider Nurse Practitioner Women's Health | DX: Z34.80 Encounter for supervision of other normal pregnancy, unspecified trimester (principal) | CPT/HCPCS: 76805 ==

== ENCOUNTER → 2024-08-24 14:11 | Outpatient (BNVA) | payer MEDICAID, SELFPAY | PROVIDERS: PCP Family Medicine; Visit Provider Nurse Practitioner Women's Health | DX: Z34.80 Encounter for supervision of other normal pregnancy, unspecified trimester (principal) | CPT/HCPCS: 84315 ==

== ENCOUNTER → 2024-09-12 14:00 | Outpatient (BNVA) | payer MEDICAID, SELFPAY | PROVIDERS: PCP Family Medicine; Visit Provider Nurse Practitioner Women's Health | DX: Z34.80 Encounter for supervision of other normal pregnancy, unspecified trimester (principal); Z36.9 Encounter for antenatal screening, unspecified | CPT/HCPCS: 76816; 82950; 84315 ==

== ENCOUNTER → 2024-09-20 08:10 | Outpatient (BNVA) | payer MEDICAID, SELFPAY | PROVIDERS: PCP Family Medicine; Visit Provider Nurse Practitioner Women's Health | DX: Z34.81 Encounter for supervision of other normal pregnancy, first trimester (principal) | CPT/HCPCS: 82951; 82952 ==

== ENCOUNTER → 2024-10-11 08:09 | Outpatient (BNVA) | payer MEDICAID, SELFPAY | PROVIDERS: PCP Family Medicine; Visit Provider Nurse Practitioner Women's Health | DX: Z34.93 Encounter for supervision of normal pregnancy, unspecified, third trimester (principal) | CPT/HCPCS: 82607; 82728; 82746; 83550; 84315; 85025 ==

== ENCOUNTER → 2024-10-26 14:10 | Outpatient (BNVA) | payer MEDICAID, SELFPAY | PROVIDERS: PCP Family Medicine; Visit Provider Nurse Practitioner Women's Health | DX: Z34.80 Encounter for supervision of other normal pregnancy, unspecified trimester (principal) | CPT/HCPCS: 84315 ==

== ENCOUNTER → 2024-11-09 08:05 | Outpatient (BNVA) | payer MEDICAID, SELFPAY | PROVIDERS: PCP Family Medicine; Visit Provider Nurse Practitioner Women's Health | DX: Z34.80 Encounter for supervision of other normal pregnancy, unspecified trimester (principal) | CPT/HCPCS: 84315 ==

== ENCOUNTER → 2024-11-23 14:10 | Outpatient (BNVA) | payer MEDICAID, SELFPAY | PROVIDERS: PCP Family Medicine; Visit Provider Nurse Practitioner Women's Health | DX: Z34.80 Encounter for supervision of other normal pregnancy, unspecified trimester (principal) | CPT/HCPCS: 84315 ==

== ENCOUNTER → 2024-11-26 15:02 | Outpatient (BNVA) | payer MEDICAID, SELFPAY | PROVIDERS: PCP Family Medicine; Visit Provider Obstetrics & Gynecology | DX: O99.211 Obesity complicating pregnancy, first trimester (principal) | CPT/HCPCS: 76819 ==

== ENCOUNTER 2024-11-27 15:58 | Outpatient (CLI) | payer MEDICAID, SELFPAY ==
[2024-11-27] VITALS (10 sets, daily range): BP systolic 120–161; BP diastolic 69–87; PULSE 93–114; RESP 17; TEMP 35.5; O2SAT 98–99
[2024-11-27 16:59] LABS: Glucose Urine UA Negative (Normal); Nitrate Urine Negative (Negative)
[2024-11-27 17:25] LABS: Specific Gravity, Urine 1.035 (1.005-1.030)
[2024-11-27] MEDS: ondansetron 2 mg/ML SDV 2 mL 4 MG IVP (17:50)
== END 2024-11-27 20:41 | disposition home or self-care (01) ==
LOC: OPOB 16:05 → OBGYN 16:06
PROVIDERS: PCP Family Medicine; Visit Provider Obstetrics & Gynecology
DX: O26.899 Other specified pregnancy related conditions, unspecified trimester (principal); Z3A.00 Weeks of gestation of pregnancy not specified; R11.2 Nausea with vomiting, unspecified; R19.7 Diarrhea, unspecified
CPT/HCPCS: 59025; 81001; 99211; J2405; J7120; J9999

== ENCOUNTER → 2024-11-29 16:28 | Outpatient (BNVA) | payer MEDICAID, SELFPAY | PROVIDERS: PCP Family Medicine; Visit Provider Obstetrics & Gynecology | DX: O26.893 Other specified pregnancy related conditions, third trimester (principal); Z3A.35 35 weeks gestation of pregnancy | CPT/HCPCS: 76819 ==

== ENCOUNTER → 2024-12-03 15:17 | Outpatient (BNVA) | payer MEDICAID, SELFPAY | PROVIDERS: PCP Family Medicine; Visit Provider Obstetrics & Gynecology | DX: Z36.9 Encounter for antenatal screening, unspecified (principal); Z34.80 Encounter for supervision of other normal pregnancy, unspecified trimester | CPT/HCPCS: 76816; 84315; 87081 ==

== ENCOUNTER → 2024-12-13 14:53 | Outpatient (BNVA) | payer MEDICAID, SELFPAY | PROVIDERS: PCP Family Medicine; Visit Provider Obstetrics & Gynecology | DX: Z36.9 Encounter for antenatal screening, unspecified (principal); Z3A.37 37 weeks gestation of pregnancy | CPT/HCPCS: 76815; 84315 ==

== ENCOUNTER → 2024-12-20 14:40 | Outpatient (BNVA) | payer MEDICAID, SELFPAY | PROVIDERS: PCP Family Medicine; Visit Provider Obstetrics & Gynecology | DX: O32.1XX0 Maternal care for breech presentation, not applicable or unspecified (principal); Z3A.00 Weeks of gestation of pregnancy not specified | CPT/HCPCS: 76815 ==

== ENCOUNTER 2024-12-24 02:50 | Outpatient (CLI) | payer MEDICAID, SELFPAY ==
[2024-12-24 02:56] VITALS: BP 121/62; PULSE 75
[2024-12-24 05:07] VITALS: BP 148/81; PULSE 68
[2024-12-24 05:11] VITALS: BP 127/61; PULSE 69
== END 2024-12-24 05:16 | disposition home or self-care (01) ==
LOC: OPOB 02:52 → OBGYN 02:53
PROVIDERS: PCP Family Medicine; Visit Provider Obstetrics & Gynecology
DX: O26.899 Other specified pregnancy related conditions, unspecified trimester (principal); Z3A.00 Weeks of gestation of pregnancy not specified; R10.9 Unspecified abdominal pain
CPT/HCPCS: 59025; 99211

== ENCOUNTER 2024-12-24 11:56 | Outpatient (CLI) | payer MEDICAID, SELFPAY ==
[2024-12-24 05:10] VITALS: RESP 18; O2SAT 96
[2024-12-24 11:58] VITALS: BMI 43.6
[2024-12-24 12:12] VITALS: BP 129/73; PULSE 63
== END 2024-12-24 13:30 | disposition home or self-care (01) ==
LOC: OPOB 11:57 → OBGYN 11:57
PROVIDERS: PCP Family Medicine; Visit Provider Obstetrics & Gynecology
DX: O26.899 Other specified pregnancy related conditions, unspecified trimester (principal); Z3A.00 Weeks of gestation of pregnancy not specified; R10.9 Unspecified abdominal pain
CPT/HCPCS: 59025; 99211; J2795; J3010

== ENCOUNTER 2024-12-24 18:51 | Inpatient (IN) | payer MEDICAID, SELFPAY ==
[2024-12-24] VITALS (57 sets, daily range): BP systolic 107–167; BP diastolic 54–98; PULSE 65–115; O2SAT 93–100; BMI 43.6
[2024-12-24 19:00] LABS: Hematocrit 40.1 % (36-47); Hemoglobin 13.30 g/dL (11.27-16.99); Mean Corpuscular HGB Conc 33.2 g/dL (30-55); Mean Corpuscular Hemoglobin 25.4 pg (27-33); Mean Corpuscular Volume 76.7 fl (85-98); Nucleated Red Blood Cells % 0 %; Platelet Count 350 10^3/cmm (157-399); Red Blood Count 5.23 10^6/uL (3.85-5.65); White Blood Count 21.71 10^3/uL (3.29-11.43)
--- NOTE | 2024-12-24 20:18 | P.ANESASSM_ITS ---
Pre-Anesthetic Assessment Height/Weight: Height 1.65 m Weight 118.841 kg Pulse BP Pulse Ox 103 H 140/78 94 12/24/24 20:14 12/24/24 20:07 12/24/24 20:14 Preop Diagnosis: Term labor LEXY Was Beta Garland taken within 24 hours: N/A Was Clonidine taken within 24 hours: N/A Social Tobacco Daily weed smoking Exam alert, oriented x 3, clear to auscultation bilaterally and regular rate & rhythm Airway Submandibular: within normal limits Cervical ROM: within normal limits Mallampati: Class II Dentition: full History/ROS No significant history except as noted and No significant complaints Pulmonary None reported CV/HEM None reported None reported Hepatic None reported GI Gastroesophageal Reflux Disease Metabolic Morbid Obesity [facility] None reported Neuropsych Depression Anesthetic Plan ASA status: 2 Anesthesia: Anesthesia Evaluation and Regional (specify below) Other: LEXY Risk of > 500 ml blood loss (7ml/kg in children): No Medications/Allergies Home Medications ?Medication ?Instructions ?Recorded ?Confirmed ?Last Taken ?Type prenat.vits,carson,fwj-suyz-harip 1 tab PO DAILY 10/21/20 12/20/24 Unknown History famotidine 20 mg tablet (Acid 20 mg PO BID #60 tabs 12/20/24 Unknown Rx Nylon Mender (famotidine)) sertraline 25 mg tablet See Rx Instructions .Route 0 09/12/24 12/20/24 Unknown Rx .COMPLEX #30 tabs breast pump #1 ea 11/09/24 12/20/24 Unkn own Rx Allergies Allergy/AdvReac Type Severity Reaction Status Date / Time cephalexin (From Keflex) Allergy rash, hives Verified 12/20/24 14:41 Penicillins Allergy was told Verified 12/20/24 14:41 she was alergic when she was a child Current Medications Generic Name Dose Route Start Last Admin Trade Name Freq PRN Reason Stop Dose Admin Sodium Chloride 1,000 mls @ 999 mls/hr 12/24/24 18:29 12/24/24 19:00 Sodium Chloride 0.9% IV 999 mls/hr .Q1H1M PRN Administration See label comments PFSH Anesthesia Medical History No pertinent past medical history neghx: htn,dm,thyroid,dvt/pe PCP: [facility]--Yousif Ma Surgical History History of cholecystectomy Hx of appendectomy at age 13 Family History Family/Other Breast cancer Paternal Cousin--dx age 28 Grandfather Diabetes Paternal Heart disease Paternal Father Heart disease Diabetes Grandmother Hypertension Maternal Denies family history of Colon cancer Ovarian cancer Hypercholesteremia Uterine cancer Thyroid disease Stroke Social History Smoking and tobacco/nicotine status: current every day tobacco/nicotine user (half a pack) Substance/Drug Use: current Substance/Drug use frequency: daily Female Reproductive History : 2 Data Anesthesia 12/24/24 18:47 Short CBC 12/24/24 Range/Units 18:47 WBC 21.71 H (3.29-11.43) 10^3/uL Hgb 13.30 (11.27-16.99) g/dL Hct 40.1 (36-47) % MCV 76.7 L (85-98) fl Plt Count 350 (157-399) 10^3/cmm Neut % (Auto) 89.2 % Neut # (Auto) 19.34 H (1.8-7.7) 10^3/uL Blood Bank 12/24/24 18:47 Blood Type B Positive Rho(D) Type Rh positive Antibody Screen Negative
[2024-12-24] MEDS: ROPivacaine syringe 100 MG/50 ML SYRINGE 10 MG EPIDURAL (20:20)
--- NOTE | 2024-12-24 20:20 | P.ANES_ITS ---
Anesthesia Procedures Procedure/Date: 12/24/24 Epidural: Time Out Performed: Yes Consents Signed: Procedure Consent Consent: from patient, risks and benefits reviewed and patient agrees to proceed Lumbar Level: L2-L3 Epidural position: sitting Epidural procedure: sterile prep of area, 1% lidocaine to numb the area, 18 g needle, neg for pares thesia, test dose given, 1.5% xylocaine 1:200k epi (5cc), 0.2% Ropivacaine bolus ml (4cc and Fentanyl 100mcg), placed PCEA, no systemic response, sterile dressing applied and 0.2% Ropiavacaine @ mls/hr (13cc/hour) Additional Comments: Pt tolerated well
[2024-12-24] MEDS: ROPivacaine syringe 100 MG/50 ML SYRINGE 13 MG EPIDURAL (23:18)
--- NOTE | 2024-12-24 23:21 | ANES.PROC ---
Anesthesia Procedures Procedure/Date: 12/24/24 Epidural: Time Out Performed: Yes Consents Signed: Procedure Consent and NPO Consent Consent: requested by attending/covering physician and from patient Lumbar Level: L2-L3 Epidural position: sitting Additional Comments: CSE performed. Initial epidural did not set up. HARDWARE SUPPLIES SALES REPRESENTATIVE called due to difficulty with placement. Patient was sat on the side of the bed. ChloraPrep was used to prep the area. 1% lidocaine was used to numb the skin. An 18-gauge epidural needle was then introduced until [id number] was achieved. A 27-gauge spinal needle was then introduced into the intrathecal space. 1 cc of 0.25% bupivacaine was then injected into the spinal space. Spinal needle was then removed and epidural catheter was threaded into the epidural space and left at 15 cm to skin. Test notes was negative. Sterile dressing was applied. Patient tolerated procedure well. Ropivacaine 0.2% was set at 13 mL/h. Patient was already receiving significant relief of pain shortly after procedure
[2024-12-25] VITALS (77 sets, daily range): BP systolic 100–178; BP diastolic 51–95; PULSE 60–124; RESP 15–17; TEMP 35.4–36.8; O2SAT 92–99
--- NOTE | 2024-12-25 01:36 | PM.OPHPUD ---
Labor & Delivery H&P Update Date of Procedure: December 25, 2024 Date H&P Performed: 12/24/24 H&P update information: I have reviewed H&P completed within last 30 days and Changes to prior documentation as noted here Admission Diagnosis: Preop diagnosis: Term labor,SROM,43 BMI Planned procedure: Anticipate
--- NOTE | 2024-12-25 02:10 | P.HP_ITS ---
Providers/Chief Complaint 2 Admitting Physician: Norberto Simon MD Primary Care Provider: Ravin Pheonix MD Chief Complaint: Contractions History of Present Illness Ms. Peck is a 34 year old established patient with LMP of 03/25/2024, LOBO 12/30/2024 based on LMP and consistent with 8 week sonogram, placing her at 39-1/7 weeks today. Patient coming for evaluation found to be in early labor with SROM at 6:29pm/clear and cxs q 3-4min. Pelvic /-1/vx BMI 43 + movements and reassuring tracing/no decels h/o x one wo complications Review of Systems 2 General: Reports: 10 or more systems reviewed and unremarkable except in HPI and below Medications/Allergies Home Medications ?Medication ?Instructions ?Recorded ?Confirmed ?Last Taken ?Type prenat.vits,carson,iod-ufvl-nrgxs 1 tab PO DAILY 10/21/20 12/20/24 Unknown History famotidine 20 mg tablet (Acid 20 mg PO BID #60 tabs 12/20/24 Unknown Rx Fretted Instrument Maker Hand (famotidine)) sertraline 25 mg tablet See Rx Instructions .Route 0 09/12/24 12/20/24 Unknown Rx .COMPLEX #30 tabs breast pump #1 ea 11/09/24 12/20/24 Unkn own Rx Allergies Allergy/AdvReac Type Severity Reaction Status Date / Time cephalexin (From Keflex) Allergy rash, hives Verified 12/20/24 14:41 Penicillins Allergy was told Verified 12/20/24 14:41 she was alergic when she was a child PFSH Acute 2 PFSH: Medical History (Updated 12/25/24 @ 02:14 by Norberto Simon MD) No pertinent past medical history neghx: htn,dm,thyroid,dvt/pe PCP: [facility]--Yousif Ma Surgical History History of cholecystectomy Hx of appendectomy at age 13 Family History Family/Other Breast cancer Paternal Cousin--dx age 28 Grandfather Diabetes Paternal Heart disease Paternal Father Heart disease Diabetes Grandmother Hypertension Maternal Denies family history of Colon cancer Ovarian cancer Hypercholesteremia Uterine cancer Thyroid disease Stroke Social History Smoking and tobacco/nicotine status: current every day tobacco/nicotine user (half a pack) Substance/Drug Use: current Substance/Drug use frequency: daily Female Reproductive History: : 2 Vitals/I&O/Wt Last Vital Signs Pulse 63 12/25/24 02:03 BP 112/57 12/25/24 02:03 Pulse Ox 100 12/24/24 23:33 Weight last 48 hrs Weight 262 lb Physical Exam 2 Resp: COMMON NORMALS: normal respiratory effort Cardio: COMMON NORMALS: regular rate and regular rhythm GI: COMMON NORMALS: Normal to inspection, nondistended, normoactive bowel sounds present : MANUAL OB EXAM: dilated 6 cm, effaced (90), station -1 and other (vx) Urinary Catheter Management: Mauro: Cath Placed During This Visit: yes Urinary Catheter Date of Insertion: 12/24/24 Urinary Catheter Time of Insertion: 23:20 Data 12/24/24 18:47 A&P Assessment and plan 1. Severe obesity due to excess calories affecting in third trimester: 2. 39 weeks gestation of : 3. BMI 40.0-44.9, adult: 4. SROM (spontaneous rupture of membranes): GBS Neg Plan: Admit for See orders PDMP PDMP Reviewed: Not Reviewed Attestations 2 Medical Necessity Statement*: Needs admission for at term in labor Coding Level of Care Code Acute Code for Chg Fwd Diagnoses Severe obesity due to excess calories affecting in third trimester O99.213; E66.01 Trimester: third trimester Obesity type affecting : severe obesity due to excess calories 39 weeks gestation of Z3A.39 BMI 40.0-44.9, adult Z68.41 SROM (spontaneous rupture of membranes)
--- NOTE | 2024-12-25 02:31 | P.PN_ITS ---
REGISTERED RADIOLOGIC TECHNOLOGIST Subjective 2 Subjective: Interval history: Called for variable decelerations, moderate variability Labor: Pain Control: epidural Dilation (cm): 8 Station: -1 A mniotic Membrane Status: Ruptured Monitor Mode: External Contraction Frequency: 3 Contraction Pattern: Regular Status: Category II Vitals/I&O/Wt Last Vital Signs Pulse 81 12/25/24 02:16 BP 104/58 12/25/24 02:16 Pulse Ox 100 12/24/24 23:33 Weight last 48 hrs Weight 262 lb Physical Exam 2 Resp: COMMON NORMALS: normal respiratory effort Cardio: COMMON NORMALS: regular rate and regular rhythm RATE: regular rate RHYTHM: regular rhythm GI: COMMON NORMALS: Normal to inspection, nondistended, normoactive bowel sounds present : MANUAL OB EXAM: dilated 8 cm, effaced (90) and station -1 Urinary Catheter Management: Mauro: Cath Placed During This Visit: yes Urinary Catheter Date of Insertion: 12/24/24 Urinary Catheter Time of Insertion: 23:20 Data 12/24/24 18:47 A&P Assessment and plan 1. SROM (spontaneous rupture of membranes): 2. BMI 40.0-44.9, adult: 3. 39 weeks gestation of : 4. Severe obesity due to excess calories affecting in third trimester: Plan: Absence of prolonged deceleration,sustained bradycardia or loss of variability. Poor external monitoring due to habitus. Internal monitoring tried but failed even after multiple attempts and change of devices. Positioning eventually resulted in adequate registering of external signal. Positional change also allowed for extinction of recurrent variables. Patient oriented about current expectations including improved status, continued monitoring, augmentation if cxs spaced and slow but steady progress. She again expressed desire to avoid CS but understands that its a possibility should labor status or progression change. At this time moderate to marked variability present, no prolonged or deepening of variable decels, no late decels or bradycardia. Maternal pain well controlled with epidural. Will continue expectant. PDMP PDMP Reviewed: Not Reviewed Attestations 2 Medical Necessity Statement*: In summary, in-patient admission and treatment is medically necessary to effectively address the maternal and health condition and improve their overall well-being. Coding Level of Care Code Acute Code for Chg Fwd Diagnoses SROM (spontaneous rupture of membranes) BMI 40.0-44.9, adult Z68.41 39 weeks gestation of Z3A.39 Severe obesity due to excess calories affecting in third trimester O99.213; E66.01 Trimester: third trimester Obesity type affecting : severe obesity due to excess calories
[2024-12-25] MEDS: ROPivacaine syringe 100 MG/50 ML SYRINGE 13 MG EPIDURAL ×3 (03:09→10:35)
[2024-12-25 05:09] LABS: PCP Screen Urine Negative (Negative)
[2024-12-25] MEDS: ondansetron 2 mg/ML SDV 2 mL 4 MG IVP (06:50)
[2024-12-25] MEDS: oxytocin 30 UNIT/500 ML BAG IV (07:15)
--- NOTE | 2024-12-25 08:22 | ANE.PACU2 ---
Inpatient post-anesthesia follow up: Airway intact: Yes Vital signs: Temperature 98.3 F Pulse Rate 88 Respiratory Rate 16 Blood Pressure 134/80 Pulse Oximetry 98 Oxygen Delivery Me thod Room Air Oxygen Flow Rate Fraction of Inspir ed Oxygen Hydration adequate: Yes Nausea and vomiting: No Pain level: 1 Mental status: Baseline Epidural Start/End: Epidural Start Date: 12/24/24 Epidural Start Time: 19:55 Epidural End Date: 12/25/24 Epidural End Time: 03:40
--- NOTE | 2024-12-25 13:42 | PM.DELIVERY ---
Delivery Note: Date of delivery: December 25, 2024 Pre-delivery diagnoses: 39weeks BMI 43 SROM Post-delivery diagnoses: Same nuchal cord X2 Procedure: with augmentation Delivering Physician: MD KRISTI Findings: 200ml Post Delivery Diagnoses: Severe obesity due to excess calories affecting in third trimester: Qualifiers: Trimester: third trimester Obesity type affecting : severe obesity due to excess calories Delivery: Patient is a 34year-old , admitted at +39 weeks gestation due to SROM and contractions. GBS neg.GBS prophylaxis not needed.Patient received an epidural early in labor. Labor progressed well, with cervical dilation reaching 10 cm and the head descending to +2 station. Nuchal cord x2 noted The rest of the body followed without difficulty. Nuchal cord reduced. The baby is a healthy female, weighing 6 lbs 7 oz, with scores of 8 at 1 minute and 9 at 5 minutes. Pitocin bag given 999 after the placenta was delivered spontaneously and intact after one minute of delayed cord clamping. Estimated blood loss was 200 mL. The patient tolerated the procedure well and is currently stable in the recovery room. No lacerations noted on exam. Clots removed manually and minimal bleeding noted and good uterine tone. No signs of uterine infection. Baby crying and grossly normal. Mom and baby afebrile. Skin to skin. Post-Delivery Status: Mom and baby stable History History History 2 Term 1 0 Miscarriages/Ectopic 0 Living Children 1 A&P Assessment and plan 1. Severe obesity due to excess calories affecting in third trimester: 2. SROM (spontaneous rupture of membranes): 3. 39 weeks gestation of : 4. , delivered: Plan: Routine post care, see orders. PDMP PDMP Reviewed: Not Reviewed Coding Level of Care Code Acute Code for Chg Fwd Diagnoses Severe obesity due to excess calories affecting in third trimester O99.213; E66.01 Trimester: third trimester Obesity type affecting : severe obesity due to excess calories SROM (spontaneous rupture of membranes) 39 weeks gestation of Z3A.39 , delivered O80
[2024-12-25] MEDS: benzocaine-menthol 78 gm Canister 1 SPRAY TOPICAL (15:05)
--- NOTE | 2024-12-25 15:14 | PC.NURSE ---
up to bathroom without difficulty. void well. rafal care performed by pt. gown and pad changed.
[2024-12-25] MEDS: HYDROcodone-acetaminophen 5-325 mg Tablet 1 TAB PO (16:19)
[2024-12-26 03:41] LABS: Hematocrit 33.8 % (36-47); Hemoglobin 10.90 g/dL (11.27-16.99); Mean Corpuscular HGB Conc 32.2 g/dL (30-55); Mean Corpuscular Hemoglobin 25.7 pg (27-33); Mean Corpuscular Volume 79.7 fl (85-98); Platelet Count 267 10^3/cmm (157-399); Red Blood Count 4.24 10^6/uL (3.85-5.65); White Blood Count 19.79 10^3/uL (3.29-11.43)
[2024-12-26 05:24] VITALS: BP 132/80; PULSE 80; RESP 16; TEMP 36.6; O2SAT 97
[2024-12-26] MEDS: PRENATAL VIT NO.130/IRON/FOLIC 1 EACH TABLET PO (09:22)
[2024-12-26 09:25] VITALS: BP 148/75; PULSE 65; RESP 18; TEMP 36.6; O2SAT 97
[2024-12-26] MEDS: measles,mumps,rubella pf Vial (w/diluent) 0.5 ML SUBCUT (15:58)
[2024-12-26 18:42] VITALS: BP 134/80; PULSE 88; RESP 16; TEMP 36.8; O2SAT 98
--- NOTE | 2024-12-28 20:58 | PM.OBGYDC ---
Discharge Providers [facility] Date of Admission: 12/24/24 18:51 Date of Discharge: 12/26/24 Attending Provider at Admission: Norberto Simon MD Attending Provider at Discharge: Norberto Simon MD Primary Care Provider: Ravin Phoenix MD Diagnoses at Discharge Discharge Diagnosis 1. Severe obesity due to excess calories affecting in third trimester: 2. SROM (spontaneous rupture of membranes): 3. 39 weeks gestation of : 4. , delivered: Reason for Visit Reason for Visit: Contractions Hospital Course Hospital Course Delivery: Patient is a 34year-old , admitted at +39 weeks gestation due to SROM and contractions. GBS neg.GBS prophylaxis not needed.Patient received an epidural early in labor. Labor progressed well, with cervical dilation reaching 10 cm and the head descending to +2 station. Nuchal cord x2 noted The rest of the body followed without difficulty. Nuchal cord reduced. The baby is a healthy female, weighing 6 lbs 7 oz, with scores of 8 at 1 minute and 9 at 5 minutes. Pitocin bag given 999 after the placenta was delivered spontaneously and intact after one minute of delayed cord clamping. Estimated blood loss was 200 mL. The patient tolerated the procedure well and is currently stable in the recovery room. No lacerations noted on exam. Clots removed manually and minimal bleeding noted and good uterine tone. No signs of uterine infection. Baby crying and grossly normal. Mom and baby afebrile. Skin to skin. Post-Delivery Status: Mom and baby stable Sent home with baby in stable condition Information Peripartum Data: Infant Delivery Method: Vaginal Laceration description: None complications: none Additional Peripartum Information: Intermittent Cat II tracing with moderate to marked variability caused by x2 nuchal cord. 8/9. Physical Exam Resp: COMMON NORMALS: normal respiratory effort Cardio: COMMON NORMALS: regular rate and regular rhythm RATE: regular rate RHYTHM: regular rhythm GI: COMMON NORMALS: Normal to inspection, nondistended, normoactive bowel sounds present : COMMON NORMALS: Yes normal appearance of the vagina Extremity: COMMON NORMALS: no calf tenderness Psych: COMMON NORMALS: mental status grossly normal, cooperative and speech normal SPEECH: Yes normal speech Urinary Catheter Management: Mauro: Cath Placed During This Visit: yes, but has since been removed by the nurse Reason for Continuing Indwelling Catheter: Decision to DC Catheter Urinary Catheter Date of Insertion: 12/24/24 Urinary Catheter Time of Insertion: 23:20 Date Urinary Catheter Removed: 12/25/24 Time Urinary Catheter Discontinued: 13:15 History History History 2 Term 1 0 Miscarriages/Ectopic 0 Living Children 1 Discharge Data Studies Completed and Pending Laboratory Results WBC 19.79 10^3/uL (3.29-11.43) H 12/26/24 02:53 RBC 4.24 10^6/uL (3.85-5.65) 12/26/24 02:53 Hgb 10.90 g/dL (11.27-16.99) L 12/26/24 02:53 Hct 33.8 % (36-47) L 12/26/24 02:53 MCV 79.7 fl (85-98) L 12/26/24 02:53 MCH 25.7 pg (27-33) L 12/26/24 02:53 MCHC 32.2 g/dL (30-55) 12/26/24 02:53 RDW 16.2 % (12.1-15.1) H 12/26/24 02:53 Plt Count 267 10^3/cmm (157-399) 12/26/24 02:53 MPV 10.4 fL (7.4-10.4) 12/26/24 02:53 Neut % (Auto) 89.2 % 12/24/24 18:47 Lymph % (Auto) 7.6 % 12/24/24 18:47 Rabun % (Auto) 2.3 % 12/24/24 18:47 Eos % (Auto) 0.0 % 12/24/24 18:47 Baso % (Auto) 0.2 % 12/24/24 18:47 Neut # (Auto) 19.34 10^3/uL (1.8-7.7) H 12/24/24 18:47 Lymph # (Auto) 1.7 10^3/uL (0.8-4.8) 12/24/24 18:47 Rabun # (Auto) 0.5 10^3/uL (0.2-0.9) 12/24/24 18:47 Eos # (Auto) 0.0 10^3/uL (0.0-0.8) 12/24/24 18:47 Baso # (Auto) 0.0 10^3/uL (0.0-0.1) 12/24/24 18:47 Nucleated RBC % (auto) 0 % 12/24/24 18:47 Nucleated RBCs # 0.0 /100WBC 12/24/24 18:47 Urine Opiates Screen Negative ng/mL (Negative) 12/25/24 02:00 Ur Barbiturates Screen Negative ng/mL (Negative) 12/25/24 02:00 Ur Phencyclidine Scrn Negative ng/mL (Negative) 12/25/24 02:00 Ur Amphetamines Screen Negative ng/mL (Negative) 12/25/24 02:00 U Benzodiazepines Scrn Negative ng/mL (Negative) 12/25/24 02:00 Urine Cocaine Screen Negative ng/mL (Negative) 12/25/24 02:00 U Marijuana (THC) Screen Positive ng/mL (Negative) H 12/25/24 02:00 Blood Type B Positive 12/24/24 18:47 Rho(D) Type Rh positive 12/24/24 18:47 Antibody Screen Negative 12/24/24 18:47 Vitals Last Vital Signs Temp 98.3 F 12/26/24 18:42 Pulse 88 12/26/24 18:42 Resp 16 12/26/24 18:42 BP 134/80 12/26/24 18:42 Pulse Ox 98 12/26/24 18:42 O2 Del Method Room Air 12/26/24 09:25 Results Labs OB ([facility]): Obstetrics US 12/20/24 Obstetrics US/Biophysical Profile 11/29/24 Blood Type B Positive 12/24/24 Antibody Screen Negative 12/24/24 Hct, (36-47) 33.8 % L 12/26/24 Hgb, (11.27-16.99) 10.90 g/dL L 12/26/24 Rho(D) Type Rh positive 12/24/24 Plt Count, (157-399) 267 10^3/cmm 12/26/24 Hep Bs Antigen, (Nonreactive) Non-reactive 06/08/24 Hepatitis C Antibody, (Nonreactive) Non-reactive 06/08/24 Rubella IgG Antibody, (0.0-10.0) 8.2 IU/mL 06/08/24 RPR, (Nonreactive) Nonreactive 06/08/24 HIV 1&2 Ab & HIV 1 Ag, (Non-Reactiv) Non-reactive 06/08/24 Glucose 1 Hr 50 gm, (85-140) 151 mg/dL H 09/12/24 Gest Glucose Tolerance mg/dL 09/20/24 HCG, Qual, (Negative) Positive H 05/18/24 Urine Opiates Screen, (Negative) Negative ng/mL 12/25/24 Ur Barbiturates Screen, (Negative) Negative ng/mL 12/25/24 Ur Phencyclidine Scrn, (Negative) Negative ng/mL 12/25/24 Ur Amphetamines Screen, (Negative) Negative ng/mL 12/25/24 U Benzodiazepines Scrn, (Negative) Negative ng/mL 12/25/24 Urine Cocaine Screen, (Negative) Negative ng/mL 12/25/24 U Marijuana (THC) Screen, (Negative) Positive ng/mL H 12/25/24 Micro Urine Specimen 06/08/24 Discharge Plan Discharge Patient Disposition: Home Condition: Stable Prescriptions: Continued prenat.vits,carson,[id number] Tablet 1 tab PO DAILY famotidine [[employer] (famotidine)] 20 mg tablet 20 mg PO BID Qty: 60 4RF (DME) breast pump Device See Rx Instructions .ROUTE .MEDSUPPLY Qty: 1 0RF Rx Instructions: As directed sertraline 25 mg tablet See Rx Instructions .ROUTE .COMPLEX Qty: 30 3RF Dose Instruction: Take 1 tablet by mouth once daily Rx Instructions: Take 1 tablet by mouth once daily Discharge Order = DC NOW: Discharge Order (Routine); Ordered 12/26/24 Ordered By: Lamin Serrano Referrals: Lina Martinez APN, JAIRO [Nurse Practitioner, [facility]] - 02/05/25 1:45 pm Patient Instructions: Depression (DC), Opioid Safety (DC), Preeclampsia and Eclampsia After Delivery (GEN), Hemorrhage (DC), OB Discharge Report, OB Food/Drug Interaction Guide, Opioid Safety, OB Home Care, OB Vaginal Deliveries - [facility], Patient Portal & Deborah Instructions, Abnormal Bleeding Discharge Attestations J[facility] Time Spent in Discharge Care*: greater than 30 min Coding Level of Care Code Acute Code for Chg Fwd Diagnoses Severe obesity due to excess calories affecting in third trimester O99.213; E66.01 Trimester: third trimester Obesity type affecting : severe obesity due to excess calories SROM (spontaneous rupture of membranes) 39 weeks gestation of Z3A.39 , delivered O80
== END 2024-12-26 16:30 | disposition home or self-care (01) | DRG 806 ==
LOC: OPOB 18:51 → OBGYN 18:51
PROVIDERS: Admitting Provider Obstetrics & Gynecology; PCP Family Medicine; Visit Provider Obstetrics & Gynecology
DX: O69.81X0 Labor and delivery complicated by cord around neck, without compression, not applicable or unspecified (principal); O99.324 Drug use complicating childbirth; Z37.0 Single live birth; O99.334 Smoking (tobacco) complicating childbirth; F17.210 Nicotine dependence, cigarettes, uncomplicated; O99.214 Obesity complicating childbirth; E66.01 Morbid (severe) obesity due to excess calories; Z3A.39 39 weeks gestation of pregnancy; O99.62 Diseases of the digestive system complicating childbirth; K21.9 Gastro-esophageal reflux disease without esophagitis; F19.90 Other psychoactive substance use, unspecified, uncomplicated
CPT/HCPCS: 12345; 36415; 51702; 59025; 59409; 80306; 83986; 85025; 85027; 86850; 86900; 90707; 96372; 96374; 99211; J2405; J2590; J2795; J7030; J7121; J9999

== ENCOUNTER → 2025-02-05 15:04 | Outpatient (BNVA) | payer MEDICAID, SELFPAY | PROVIDERS: PCP Family Medicine; Visit Provider Nurse Practitioner Women's Health | DX: D64.9 Anemia, unspecified (principal) | CPT/HCPCS: 82728; 85025 ==

== ENCOUNTER 2025-03-05 05:43 | Day surgery (SDC) | payer MEDICAID, SELFPAY ==
[2025-03-05] VITALS (9 sets, daily range): BP systolic 97–126; BP diastolic 53–92; PULSE 59–74; RESP 15–17; TEMP 36.3–36.6; O2SAT 95–99; BMI 40.9
--- NOTE | 2025-03-05 01:10 | W.PM.OPSFHP ---
Same Day Surgery H&P Indication for Procedure/HPI DATE OF PROCEDURE: March 05, 2025 CHIEF COMPLAINT/INDICATIONFOR SURGICAL PROCEDURE: desires permanent sterilization PREOP DIAGNOSIS: desires permanent sterilization PLANNED PROCEDURE: Operation Date: 03/05/25 07:00 Proposed Procedures p Laparoscopic BILATERAL Salpingectomy 94838 Z30.2(Bilateral) - Lamin Serrano MD Medications/Allergies* Home Medications ?Medication ?Instructions ?Recorded ?Confirmed ?Type prenat.vits,carson,[id number] 1 tab PO DAILY 10/21/20 03/04/25 History Allergies/Adverse Reactions Allergy/AdvReac Type Severity Reaction Status Date / Time cephalexin (From Keflex) Allergy rash, hives Verified 02/05/25 14:06 Penicillins Allergy was told Verified 02/05/25 14:06 she was alergic when she was a child Pertinent History/Comorbid Conditions* Medical History (Updated 02/05/25 @ 14:36 by Lina Martinez APN, JAIRO) No pertinent past medical history neghx: htn,dm,thyroid,dvt/pe PCP: [facility]--Yousif Ma Surgical History (Updated 05/18/24 @ 13:42 by Lina Martinez APN, JAIRO) History of cholecystectomy Hx of appendectomy at age 13 Family History (Updated 10/21/20 @ 14:07 by Jaz Garza) Diabetes Grandfather Paternal Father Heart disease Grandfather Paternal Father Breast cancer Family/Other Paternal Cousin--dx age 28 Hypertension Grandmother Maternal Denies family history of Colon cancer Ovarian cancer Hypercholesteremia Uterine cancer Thyroid disease Stroke Social History Smoking and tobacco/nicotine status: current every day tobacco/nicotine user (half a pack) Substance/Drug Use: current Substance/Drug use frequency: daily Pertinent Exam Findings alert, oriented x 3, clear to auscultation bilaterally and regular rate & rhythm Recommendations Surgery/Procedure today Coding Level of Care Code Acute Code for Chg Fwd
[2025-03-05 06:12] LABS: OR HCG Qualitative Urine Negative (Negative)
--- NOTE | 2025-03-05 06:47 | ANES.PREANE2 ---
Pre-Anesthetic Assessment Height/Weight: Height 5 ft 5 in Weight 246 lb Temp Pulse Resp BP Pulse Ox O2 Del Method 97.7 F 59 L 16 114/71 96 Room Air 03/05/25 06:07 03/05/25 06:07 03/05/25 06:07 03/05/25 06:07 03/05/25 06:07 03/05/25 06:07 Preop Diagnosis: desires permanent sterilization Operation Date: 03/05/25 07:00 Proposed Procedures p Laparoscopic BILATERAL Salpingectomy 90797 Z30.2(Bilateral) - Lamin Serrano MD Was Beta Garland taken within 24 hours: N/A Was Clonidine taken within 24 hours: N/A Last intake: Intake Last Liquid Date 03/04/25 Last Liquid Time 21:00 Last Solid Date 03/04/25 Last Solid Time 18:00 Social Tobacco and No alcohol Exam alert, oriented x 3, clear to auscultation bilaterally and regular rate & rhythm Airway Submandibular: within normal limits Cervical ROM: within normal limits Mallampati: Class III Dentition: full Anesthetic Plan ASA status: 3 Anesthesia: General Other: No prior issues with anesthesia NPO since yesterday evening Denies any cardiac issues Current smoker, nicotine and marijuana BMI 40.9 GERD, diet controlled. States she does not really take her Pepcid METs greater than 4 Plan for GETA Medications/Allergies Home Medications ?Medication ?Instructions ?Recorded ?Confirmed ?Last Taken ?Type prenat.vits,carson,[id number] 1 tab PO DAILY 10/21/20 03/04/25 03/04/25 History famotidine 20 mg tablet (Acid 20 mg PO BID #60 tabs 07/20/24 03/04/25 02/18/25 Rx [employer] (famotidine)) breast pump #1 ea 11/09/24 02/05/25 Unknown Rx paroxetine HCl 10 mg tablet (Paxil) 10 mg PO DAILY #30 tabs 02/05/25 03/05/25 03/05/25 Rx Allergies Allergy/AdvReac Type Severity Reaction Status Date / Time cephalexin (From Keflex) Allergy rash, hives Verified 02/05/25 14:06 Penicillins Allergy was told Verified 02/05/25 14:06 she was alergic when she was a child Current Medications Generic Name Dose Route Start Last Admin Trade Name Freq PRN Reason Stop Dose Admin Sodium Chloride 1,000 mls @ 30 mls/hr 03/05/25 06:00 03/05/25 06:13 Sodium Chloride 0.9% IV 03/06/25 05:59 30 mls/hr .Q24H SCOTT Administration PFSH Anesthesia Medical History (Updated 02/05/25 @ 14:36 by Lina Martinez APN, JAIRO) No pertinent past medical history neghx: htn,dm,thyroid,dvt/pe PCP: [facility]--Yousif Ma Surgical History History of cholecystectomy Hx of appendectomy at age 13 Family History Family/Other Breast cancer Paternal Cousin--dx age 28 Grandfather Diabetes Paternal Heart disease Paternal Father Heart disease Diabetes Grandmother Hypertension Maternal Denies family history of Colon cancer Ovarian cancer Hypercholesteremia Uterine cancer Thyroid disease Stroke Social History Smoking and tobacco/nicotine status: current every day tobacco/nicotine user (half a pack) Substance/Drug Use: current Substance/Drug use frequency: daily
--- NOTE | 2025-03-05 08:18 | W.PM.OPSUD ---
Surgery/Procedure H&P Update DATE OF PROCEDURE: March 05, 2025 DATE H&P PERFORMED: 03/05/25 H&P UPDATE INFORMATION: I have reviewed H&P completed within last 30 days, I have examined patient prior to procedure and No changes to prior documentation PREOP DIAGNOSIS: desires permanent sterilization PLANNED PROCEDURE: Operation Date: 03/05/25 07:00 Proposed Procedures p Laparoscopic BILATERAL Salpingectomy 38730 Z30.2(Bilateral) - Lamin Serrano MD
[2025-03-05] MEDS: ondansetron 2 mg/ML SDV 2 mL 4 MG IVP ×2 (10:02→10:09)
--- NOTE | 2025-03-05 10:45 | P.OP_ITS ---
Operative Report Date of procedure: March 05, 2025 Pre-op diagnosis: desires permanent sterilization Post-op diagnosis: same Post-op findings: normal uterus, tubes, and ovaries Procedure done: laparoscopic bilateral salpingectomy Implants: none Specimens removed/disposition: bilateral fallopian tubes Surgeon: Lamin Serrano MD Anesthesia: General Estimated blood loss (mL): 5 Complications: none Findings: see above Condition: stable Disposition: PACU Brief History: 34 y.o. desires permanent sterilization Procedure: The patient was taken to the OR and placed on the table. General endotracheal anesthesia was induced. The abdomen was then prepped and draped in the usual fashion. A 5 mm subumbilical skin incision was made. A 5 mm trocar with sheath was then inserted into the peritoneal cavity under direct visualization with the laparoscope. After confirming intraperitoneal position, pneumoperitoneum was achieved. Two separate 5 mm incisions were made in the right and left mid- quadrants. 5 mm trocars with sheaths were then inserted into the peritoneal cavity under direct visualization with the laparoscope. The bladder was seen to be mildly distended. The right fallopian tube was then identified to its fimbrial end. Starting at the fimbrial end, the mesosalpinx was then coagulated and cut using the Ligasure. The right fallopian tube was excised and removed via one of the ports. This was sent to pathology. There was no bleeding seen. Similarly, the left fallopian tube was identified to its fimbrial end. The left fallopian tube was excised and removed, sent to pathology. There was no bleeding. The bladder was emptied using a catheter with return of clear yellow urine. All instruments were then removed from the peritoneal cavity after the pneumoperitoneum was allowed to escape. The skin incisions were closed using 3- O chromic in subcuticular fashion. Dermabond was applied. The patient was then placed supine and awakened, taken the the PACU in good condition. Postop condition: stable EBL: 5 cc Complications: none Sponge, needles, and instruments counts correct x two
--- NOTE | 2025-03-05 11:15 | ANE.PACU2 ---
Inpatient post-anesthesia follow up: Airway intact: Yes Vital signs: Temperature 97.8 F Pulse Rate 71 Respiratory Rate 16 Blood Pressure 126/92 Pulse Oximetry 95 Oxygen Delivery Me thod Room Air Oxygen Flow Rate 6 Fraction of Inspir ed Oxygen Hydration adequate: Yes Nausea and vomiting: No Pain level: 1 Mental status: Baseline
== END 2025-03-05 11:15 | disposition home or self-care (01) ==
PROVIDERS: Student in an Organized Health Care Education/Training Program; PCP Family Medicine; Visit Provider Obstetrics & Gynecology
PROC: (CPT 58661; principal; 2025-03-05 07:00)
DX: Z30.2 Encounter for sterilization (principal); K21.9 Gastro-esophageal reflux disease without esophagitis; F17.210 Nicotine dependence, cigarettes, uncomplicated; F12.90 Cannabis use, unspecified, uncomplicated
CPT/HCPCS: 58661; 81025; 88302; J1100; J1171; J1885; J2250; J2371; J2405; J2704; J3010; J3490; J3535; J7030; J9999